=== PATIENT | male | born 1940 | race Caucasian/White ===

== ENCOUNTER 2022-05-15 07:43 | Outpatient (CLI) | payer MEDICARE, BC, SELFPAY ==
[2022-05-15 11:45] LABS: Albumin* 4.1 g/dL (3.3-5.0); Chloride* 106 mmol/L (96-114); Potassium* 4.5 mmol/L (3.6-5.1); Sodium* 140 mmol/L (135-149)
[2022-05-15 11:47] LABS: Bilirubin Total* 1.7 mg/dL (0.1-1.5); Carbon Dioxide* 28 mmol/L (20-32); Cholesterol* 161 mg/dL (90-199); Creatinine* 0.9 mg/dL (0.5-1.5); Estimated Glomerular Filt Rate 86 ml/min; Total Protein* 7.1 g/dL (6.0-8.3)
[2022-05-15 11:48] LABS: Alanine Aminotransferase* 35 U/L (4-50); Alkaline Phosphatase* 74 U/L (40-150); Aspartate Amino Transferase* 45 U/L (12-35); Blood Urea Nitrogen* 16 mg/dL (7-30); Calcium* 9.3 mg/dL (8.4-10.6); Glucose* 107 mg/dL (60-115); HDL Cholesterol* 60 mg/dL (>=40); LDL Cholesterol Calculated 70 mg/dL (<100); Triglycerides* 153 mg/dL (40-149)
[2022-05-17 20:00] LABS: PSA Screen* 2.21 ng/mL (0.10-4.00)
== END 2022-05-15 07:44 | disposition home or self-care (01) ==
PROVIDERS: PCP Family Medicine; Visit Provider Family Medicine
DX: Z00.00 Encounter for general adult medical examination without abnormal findings (principal); E78.5 Hyperlipidemia, unspecified; N42.9 Disorder of prostate, unspecified; Z12.5 Encounter for screening for malignant neoplasm of prostate
CPT/HCPCS: 80053; 80061; 84153

== ENCOUNTER 2022-07-06 17:49 | Emergency (ER) | payer MEDICARE, BC, SELFPAY ==
[2022-07-06 17:53] VITALS: BP 188/86; PULSE 68; RESP 16; TEMP 36.1; BMI 31.2
--- NOTE | 2022-07-06 18:24 | CRLHL7_ITS ---
For Patients: As a result of the Century Cures Act, medical imaging exams and procedure reports are released immediately into your electronic medical record. You may view this report before your referring provider. If you have questions, please contact your health care provider. INDICATION: Left lower quadrant abdominal pain. TECHNIQUE: CT abdomen and pelvis acquired with 112 cc Isovue 370 IV contrast. COMPARISON: None. FINDINGS: Lower chest: Minimal dependent atelectasis on the right. Coronary artery calcifications. Liver: Normal in size and attenuation. 1.8 cm hypodense lesion in the groove between the left hepatic and caudate lobes (series 2, image 19), nonspecific may represent a perihepatic cyst. Gallbladder and bile ducts: Unremarkable. No stones or inflammation. No biliary ductal dilatation. Spleen: Unremarkable. Normal in size. No masses. Adrenal glands: Unremarkable. No nodules. Pancreas: Unremarkable. No mass or inflammation. Kidneys: 8 mm calculus in the distal left ureter near the ureterovesical junction with moderate upstream hydroureteronephrosis. Delayed nephrogram on the left compared to the right. Asymmetric left perinephric stranding, likely due to increased hydrostatic pressures. Left renal upper pole cyst. Subcentimeter hypodense foci are too small to accurately characterize but statistically likely cysts. GI tract: Normal in caliber. Scattered colonic diverticula without evidence of diverticulitis. Normal appendix. Lymph nodes: No lymphadenopathy. Vasculature: Scattered atherosclerotic calcifications. Omentum/Peritoneum/Abdominal Wall: Unremarkable. No free air or significant free fluid. Pelvis: Prostatomegaly. Bones: Degenerative changes of the spine. IMPRESSION: 1. 8 mm obstructive distal left ureteral calculus with moderate upstream hydroureteronephrosis and delayed nephrogram. 2. Scattered colonic diverticula without evidence of diverticulitis. 3. Prostatomegaly. Please note that all CT scans at this facility use dose modulation, iterative reconstruction, and/or weight-based dosing when appropriate to reduce radiation dose to as low as reasonably achievable. Dictated by Evan Doll MD @ 07/06/2022 9:16:44 PM (Electronically Signed)
--- NOTE | 2022-07-06 18:25 | ED.GENADULT ---
HPI - General Adult General Chief complaint: Flank Pain Stated complaint: back & left side pain Time Seen by Provider: 07/06/22 17:50 History of Present Illness HPI narrative: This 81-year-old male comes in reporting pain in his left lower quadrant. He states that the pain began this morning and it seemed more localized in his left flank area. The pain is worsened throughout the day. He states that it is constant pain. He does not report any fever, dysuria, nausea, vomiting, or blood in the toilet. He did have some loose stool today. Prior to this he has been in good health. Related Data Home Medications Medication Instructions Recorded Confirmed aspirin 81 mg tablet,delayed mg PO QDAY 05/17/22 05/17/22 release amxhkatx-mwh-lbqwb acid 300 1 tab PO QDAY 05/17/22 05/17/22 mcg-lycopene 600 mcg-lutein 300 mcg tablet (Centrum Silver Men) omega-3 acid ethyl esters 1 gram 1 cap PO QDAY 05/17/22 05/17/22 capsule Previous Rx's Medication Instructions Recorded atorvastatin 80 mg tablet 80 mg PO .Bedtime #90 tabs 05/17/22 tamsulosin 0.4 mg capsule (Flomax) 0.4 mg PO DAILY #10 caps 07/06/22 Allergies Allergy/AdvReac Type Severity Reaction Status Date / Time No Known Allergies Allergy Unknown Unknown Verified 07/06/22 19:12 Review of Systems Status of ROS: Reports: 10 or more systems reviewed and unremarkable except as noted in History and below Narrative: Constitutional: No fevers, no weight gain or loss. Eyes: No discharge. No vision changes. HENT: No congestion, no sore throat, no ear pain. Cardiovascular: No chest pain, no palpitations. Respiratory: No shortness of breath, no wheezes, no cough. Gastrointestinal: No vomiting, no diarrhea. Left lower quadrant abdominal pain. Genitourinary: No dysuria, no hematuria. Musculoskeletal: Normal range of motion. Skin: No rashes, no pruritis. Neurological: No dizziness, weakness, sensory change, speech change. Endo/Heme/Allergies: No bruising or bleeding. No polydipsia. Pysch: no suicidality, no anxiety, no insomnia. All other systems reviewed and are negative. [facility] Medical History (Updated 07/06/22 @ 20:54 by Avel Malik MD) Dyslipidemia Encounter for counseling regarding advance directives (08/12/90) Gilbert's syndrome Seasonal allergies Surgical History (Updated 05/14/22 @ 11:54 by Christi Gregg ~ PSR) History of tonsillectomy (1950) Family History (Updated 05/17/22 @ 15:28 by Dian You MD) Sister Bladder cancer Diabetes Breast cancer Family/Other Breast cancer Family/Other Liver disease Mother Diabetes Father Myocardial infarction Brother Prostate cancer, Onset Age: 80 Bladder cancer, Onset Age: 75 Social History (Updated 05/14/22 @ 12:10 by Christi Gregg ~ PSR) Narrative: , 2 adult kids Retired from [employer] Non-smoker quit 1975, 10pack years Social drinker 1-2/ day Exercise involving walking 1-2 M 3-4 week Smoking Status: Former smoker How often do you have a drink containing alcohol: 4 or more times a week How many standard drinks containing alcohol do you have on a typical day: 1 or 2 AUDIT-C Alcohol total score: 4 Non-prescribed substance use: denies use Little interest or pleasure in doing things: not at all Feeling down, depressed, or hopeless: not at all Exam Narrative: Exam Narrative: Constitutional: Well-developed, well-nourished, no acute distress. HEENT: Normocephalic, atraumatic. Neck: Normal range of motion. Nontender. Supple. Heart: Regular. No murmurs. Normal rate. Intact distal pulses. Lungs: Clear to auscultation. No chest discomfort. No wheezes, rhonchi, or rales. Abdomen: Normal bowel sounds. Tenderness in the left lower quadrant. No rebound tenderness. Genitalia: Deferred. Back: No midline tenderness. Normal range of motion. Extremities: Normal range of motion. No injury. Skin: Intact. No rash. Warm. No erythema or pallor. Neurologic: No altered sensation. No weakness. Alert and oriented. Psychiatric: No suicidality. No anxiety or depression. No insomnia. Nursing notes and vitals signs are reviewed. Const: Vital Signs, click to edit/add: Vital Signs - 24 hr 07/06/22 17:53 07/06/22 18:56 Temperature 97.0 F L Pulse Rate [Right Pulse Oximeter] 68 77 Respiratory Rate 16 16 Blood Pressure [Le ft Upper Arm] 188/86 H 167/92 H Pulse Oximetry 93 Oxygen Delivery Me thod Room Air Course Vital Signs Vital signs: Initial Vital Signs Temperature 97.0 F L 07/06/22 17:53 Temperature Source Temporal Artery Scan 07/06/22 17:53 Pulse Rate 68 07/06/22 17:53 Pulse Rhythm 07/06/22 17:53 Respiratory Rate 16 07/06/22 17:53 Blood Pressure 188/86 H 07/06/22 17:53 Blood Pressure Mean 120 07/06/22 17:53 Vital Signs Temperature 97.0 F L 07/06/22 17:53 Pulse Rate 68 07/06/22 17:53 Respiratory Rate 16 07/06/22 17:53 Blood Pressure 188/86 H 07/06/22 17:53 Temperature 97.0 F L 07/06/22 17:53 Pulse Rate 77 07/06/22 18:56 Respiratory Rate 16 07/06/22 18:56 Blood Pressure 167/92 H 07/06/22 18:56 Pulse Oximetry 93 07/06/22 18:56 Oxygen Delivery Method 07/06/22 18:56 Medical Decision Making MDM Narrative Medical decision making narrative: This patient comes in with left flank pain that began this morning and now is located in the left lower abdomen. There is suspicion that this could be a kidney stone or diverticulitis. He does arrive with normal vital signs except for some increased blood pressure. An IV was established where he received Dilaudid 0.2 mg. Lab results returned with reassuring findings. CT imaging by my review shows evidence of a stone in the distal left ureter with some hydronephrosis and hydroureter upstream from the stone. This stone appears to be a bit larger than average. Report from the radiologist is delayed as the images were not sent initially. I explained to the patient that it can be worth a try to pass the stone without intervention from a urologist as it has progressed from the kidney to the entrance of the bladder. He understands that he can return or follow-up with a urologist if symptoms are persistent or worsening. He received prescriptions for [place], Toradol, Zofran, and Flomax. Lab Data Labs: Lab Results 07/06/22 07/06/22 Range/Units 18:35 18:35 WBC 11.48 H (4.50-11.00) K/uL RBC 5.19 (4.30-5.90) m/uL Hgb 16.8 (13.5-17.5) gm/dL Hct 48.9 (37.0-53.0) % MCV 94 (80-100) fL MCH 32 (26-34) pg MCHC 34 (32-36) gm/dL RDW Coeff of Linnette 12.5 (11.5-15.5) % Plt Count 190 (140-440) K/uL Neut % (Auto) 87.2 H (42.0-72.0) % Lymph % (Auto) 6.4 L (20-44) % Owsley % (Auto) 5.8 (0.0-11.0) % Eos % (Auto) 0.1 (0.0-7.0) % Baso % (Auto) 0.1 (0.0-3.0) % Neut # (Auto) 10.00 H (1.7-7.0) K/uL Lymph # (Auto) 0.70 L (0.90-2.90) K/uL Owsley # (Auto) 0.70 (0.00-0.90) K/UL Eos # (Auto) 0.00 (0.00-0.50) K/uL Baso # (Auto) 0.00 (0.00-0.30) K/uL Sodium 139 (135-149) mmol/L Potassium 4.4 (3.6-5.1) mmol/L Chloride 106 (96-114) mmol/L Carbon Dioxide 25 (20-32) mmol/L BUN 17 (7-30) mg/dL Creatinine 1.1 (0.5-1.5) mg/dL Estimated Creat Clear 58.79 Estimated GFR 68 ml/min Glucose 134 H (60-115) mg/dL Calcium 9.5 (8.4-10.6) mg/dL Discharge Plan Discharge Clinical Impression: Calculus, ureteral Patient Disposition: Home, Self-Care Condition: Unchanged Additional Instructions: Take medication as needed and indicated. Follow up with MD also as needed. If symptoms worsen or are not improving return or present to a facility with a urologist for further interventions as may be necessary. Prescriptions: New tamsulosin [Flomax] 0.4 mg capsule 0.4 mg PO DAILY Qty: 10 2RF No Action aspirin 81 mg tablet,delayed release (DR/EC) PO QDAY Centrum Silver Men 300-600-300 mcg tablet 1 tab PO QDAY omega-3 acid ethyl esters 1 gram capsule 1 cap PO QDAY atorvastatin 80 mg tablet 80 mg PO .Bedtime Qty: 90 4RF Follow Up/Referrals: Dian You MD [Primary Care Provider] - Stand Alone Forms: [employer] Apps Info Instructions
[2022-07-06 18:48] LABS: Basophils Percent Auto 0.1 % (0.0-3.0); Eosinophils Percent Auto 0.1 % (0.0-7.0); Hematocrit 48.9 % (37.0-53.0); Hemoglobin* 16.8 gm/dL (13.5-17.5); Immature Granulocytes Pct Auto 0.4 %; Lymphocytes Percent Auto 6.4 % (20-44); Mean Corpuscular HGB Conc 34 gm/dL (32-36); Mean Corpuscular Hemoglobin 32 pg (26-34); Mean Corpuscular Volume 94 fL (80-100); Monocytes Percent Auto 5.8 % (0.0-11.0); Neutrophils Percent Auto 87.2 % (42.0-72.0); Platelet Count* 190 K/uL (140-440); RDW Coefficient of Variation % 12.5 % (11.5-15.5); Red Blood Count 5.19 m/uL (4.30-5.90); White Blood Count* 11.48 K/uL (4.50-11.00)
[2022-07-06] MEDS: HYDROmorphone 0.5 mg/0.5 ml inj 0.2 MG IVP (18:51)
[2022-07-06 18:55] LABS: Slide Review Reflex No
[2022-07-06 18:56] VITALS: BP 167/92; PULSE 77; RESP 16; O2SAT 93
[2022-07-06 19:02] LABS: Chloride* 106 mmol/L (96-114); Potassium* 4.4 mmol/L (3.6-5.1); Sodium* 139 mmol/L (135-149)
[2022-07-06 19:04] LABS: Creatinine* 1.1 mg/dL (0.5-1.5); Est. Creatinine Clearance* 58.79; Estimated Glomerular Filt Rate 68 ml/min
[2022-07-06 19:05] LABS: Blood Urea Nitrogen* 17 mg/dL (7-30); Calcium* 9.5 mg/dL (8.4-10.6); Carbon Dioxide* 25 mmol/L (20-32); Glucose* 134 mg/dL (60-115)
[2022-07-06] MEDS: HYDROmorphone 0.5 mg/0.5 ml inj IVP (20:56)
[2022-07-06] MEDS: KETOROLAC 30 MG/ML inj IVP (20:56)
[2022-07-06 21:12] VITALS: RESP 14; O2SAT 92
--- NOTE | 2022-07-07 12:45 | ED.NURSE ---
Pt's called stating that flomax was not at [facility]. Was sent to mail order. Called into [facility]. Pharmacist will call and cancel mail order.
== END 2022-07-06 21:42 | disposition home or self-care (01) ==
PROVIDERS: Emergency Provider Emergency Medicine Emergency Medical Services; PCP Family Medicine
DX: N20.1 Calculus of ureter (principal)
CPT/HCPCS: 36415; 74177; 80048; 85025; 96374; 96375; 96376; 99284; J1170; J1885; Q9967

== ENCOUNTER 2023-05-09 07:50 | Outpatient (CLI) | payer MEDICARE, BC, SELFPAY | END 2023-05-09 07:51 | disposition home or self-care (01) | LOC: NFLDREF 05-15 15:40 | PROVIDERS: PCP Family Medicine; Referring Provider Family Medicine; Visit Provider Family Medicine | DX: E78.5 Hyperlipidemia, unspecified (principal); R73.01 Impaired fasting glucose; Z12.5 Encounter for screening for malignant neoplasm of prostate; Z13.9 Encounter for screening, unspecified | CPT/HCPCS: 80053; 80061; 82248; G0103 ==

== ENCOUNTER 2023-10-23 15:43 | Outpatient (CLI) | payer MEDICARE, BC, SELFPAY | END 2023-10-23 15:44 | disposition home or self-care (01) | PROVIDERS: PCP Family Medicine; Visit Provider Family Medicine | DX: N20.1 Calculus of ureter (principal); R39.15 Urgency of urination; N39.41 Urge incontinence; R73.03 Prediabetes; R53.83 Other fatigue | CPT/HCPCS: 80053; 87086 ==

== ENCOUNTER 2024-05-12 07:33 | Outpatient (CLI) | payer MEDICARE, BC, SELFPAY | END 2024-05-12 07:34 | disposition home or self-care (01) | LOC: NFLDREF 05-17 03:56 | PROVIDERS: PCP Family Medicine; Referring Provider Family Medicine; Visit Provider Family Medicine | DX: E78.5 Hyperlipidemia, unspecified (principal); R73.01 Impaired fasting glucose; Z12.5 Encounter for screening for malignant neoplasm of prostate | CPT/HCPCS: 80053; 80061; G0103 ==

== ENCOUNTER 2024-05-17 00:36 | Emergency (ER) | payer MEDICARE, BC, SELFPAY ==
[2024-05-17] VITALS (26 sets, daily range): BP systolic 114–166; BP diastolic 58–69; PULSE 50–67; RESP 16–18; TEMP 35.8–36.6; O2SAT 88–99; BMI 31.2
--- OUTSIDE RECORDS SUMMARY | 2024-05-17 00:39 | XMS_ITS | Data Portability ---
Author Organization [facility], [facility] Address [address] [place] [address] Care Team Providers Care Coat Ironer Hand Name Role Phone JOHN PATTERSON Referring Provider [phone] Assessment No assessment recorded. Plan of Treatment Reminders Order Date Submit Date Provider Last Modified By Organization Details Last Modified Time Details Appointments None recorded. Lab urinalysis , dipstick 2023 024 [facility], [address], [address], [place], [address], 15:34:12 Referral None recorded. Procedures None recorded. Surgeries None recorded. Imaging None recorded. Medication Orders None recorded. Patient TargetsNo targets recorded. Patient InstructionsNo instructions recorded. Reason for Referral None Reported. Results Created Date Observation Date Name Description Value Unit Range Abnormal Flag Note LastModifiedBy Organization Detail LastModifiedTime 11/26/19 24 11/26/2023 urina lysis , dipst ick Color-Status Yellow Not Available [place] [id number], [place], [address], 11/26/2023 14:52:43 11/26/19 24 11/26/2023 urina lysis , dipst ick Clarity-Stat us Slight ly Cloudy Not Available [facility] [address], [place], [address], 11/26/2023 14:52:43 11/26/19 24 11/26/2023 urina lysis , dipst ick Glucose-Stat us Negati ve Not Available [address], [place], [address], 11/26/2023 14:52:43 11/26/19 24 11/26/2023 urina lysis , dipst ick Bilirubin-St atus Negati ve Not Available [address], [place], [address], 11/26/2023 14:52:43 11/26/19 24 11/26/2023 urina lysis , dipst ick Ketones-Stat us Negati ve Not Available [address], [place], [address], 11/26/2023 14:52:43 11/26/19 24 11/26/2023 urina lysis , dipst ick Sp Gallion-Stat us 1.030 Not Available [address], [place], [address], 11/26/2023 14:52:43 11/26/19 24 11/26/2023 urina lysis , dipst ick pH-Status 7.0 Not Available [address], [place], [address], 11/26/2023 14:52:43 11/26/19 24 11/26/2023 urina lysis , dipst ick Urobilinogen -Status 0.2 Not Available [address], [place], [address], 11/26/2023 14:52:43 11/26/19 24 11/26/2023 urina lysis , dipst ick Nitrates-Sta tus negati ve Not Available [address], [place], [address], 11/26/2023 14:52:43 11/26/19 24 11/26/2023 urina lysis , dipst ick Blood-Status Negati ve Not Available [address], [place], [address], 11/26/2023 14:52:43 11/26/19 24 11/26/2023 urina lysis , dipst ick Leuko-Status Negati ve Not Available [address], [place], [address], 11/26/2023 14:52:43 11/26/19 24 11/26/2023 urina lysis , dipst ick Performed by hprim Not Available [address], [place], [address], 11/26/2023 14:52:43 Result Notes None recorded. Problems Name Problem SNOMED Code Status Onset Date Resolution Date Notes Provider Name and Address Organization Details Recorded Time Kidney stone 06259754 Active 024 Armand Delgado MD [address] [place] [address], [address] , [facility] 11/26/2023 15:32:39 Urgent desire to urinate 07281046 Active 024 Armand Delgado MD [address] [place] [address], [address] , [facility] 11/26/2023 15:33:00 Problem Notes None recorded. Procedures Surgical History Date Name Laterality Status Provider Name and Address Organization Details Recorded Time Bladder Scan completed Ellen Khan [facility] 11/26/2023 14:49:39 Imaging Results None recorded. Procedure Notes None recorded. Medical Equipment None Reported. Allergies No known drug allergies Medications Name Sig Start Date Stop Date Status Note LastModified by Organization Details LastModified Time atorvastatin 80 mg tablet active Not Available Not Available Not Available azithromycin 250 mg tablet 11/25 completed Not Available Not Available Not Available benzonatate 200 mg capsule TAKE 1 CAPSULE BY MOUTH 2 TO 3 TIMES PER DAY NEEDED FOR COUGH 11/25 completed Not Available Not Available Not Available amoxicillin 875 mg-potassium clavulanate 125 mg tablet TAKE 1 TABLET BY MOUTH TWICE DAILY FOR 7 DAYS 11/25 completed Not Available Not Available Not Available Vitals None Recorded Social History Question Answer Notes LastModified by Organizat ion Details LastModified Time Tobacco Smoking Status Former Smoker Ellen Khan [place], [place] - [facility] 11/26/2023 14:48:58 What Is Your Level Of Alcohol Consumption? Moderate Information not available 11/26/2023 What Is Your Level Of Caffeine Consumption? Moderate Information not available 11/26/2023 When Did You Quit Smoking? 16+yearssince lastcigarette Information not available 11/26/2023 What Was The Date Of Your Most Recent Tobacco Screening? 11/26/2023 Information not available 11/26/2023 Have You Ever Been Counseled For Unhealthy Alcohol Use? No Information not available 11/26/2023 How Much Tobacco Do You Smoke? No Information not available 11/26/2023 Do You Use Any Illicit Or Recreational Drugs? No Information not available 11/26/2023 Has Tobacco Cessation Counseling Been Provided? No Information not available 11/26/2023 Do You Or Have You Ever Used Any Other Forms Of Tobacco Or Nicotine? No Information not available 11/26/2023 How Many Days In The Past Year Have You Consumed 5 Or More Drinks? 0 Information no t available 11/26/2023 Sex: Unknown Functional Status None recorded. Mental Status None recorded. Family History Nothing Reported. Medical History Condition Response Diabetes N Sexually Transmitted Infection N Bleeding Disorder N Other N High Blood Pressure N Kidney Stones N Cancer N Lung Disease N Depression N High Cholesterol Y GERD/Acid Reflux N Heart Disease N Past Encounters Encounter ID Performer Location Encounter Start Date Encounter Closed Date Diagnosis/Indication Diagnosis SNOMED-CT Code Diagnosis ICD10 Code Diagnosis Note [id number] Armand Delgado MD [facility] [address] [place] [address] 11/26/2023 14:27:33 12/01/2023 11:54:32 Kidney stone 55172919 N20.0 - Stone has likely passed. No pain for the last 3 months and urinalysis is negative for blood. Recommende d to call if he develops recurrent pain and I would order another CT scan. Family his tory of malignant neoplasm of urinary bladder 731331675 Z80.52 - Bladder cancer is generally not a genetic disease. It is most often related to smoking. He has no history of gross hematuria nor any microscopi c blood in his urine. Cystoscopy is not indicated. I offered referral to a wooden boat builder if he was interested . Patient declined. Urgent hua beata to urinate 96031728 R39.15 - Mild, not bothersome , follow expectantl y. Return to clinic as needed. Health Concerns Section Related Observation LastModified by Organization Detai ls LastModified Time None Recorded Concern Status LastModified by Organization Details LastModified Time None Recorded Advance Directives Directive None Recorded Payers Encounter Date Sequence Insurance Name Policy Number Policy Barcenas Covered Member ID Barcenas Member ID Guarantor Name 11/26/2023 1 [place] [employer] Daniel Gonzales [id number] Daniel Gonzales 11/26/2023 2 [place] [id number] Daniel Gonzales [id number] Daniel Gonzales Notes Date Note Type Note Provider Name and Address Organization Details Recorded Time 11/26/2023 text/html New patient referred for bladder concerns and history of kidney stones. He reports left-sided flank pain that prompted a trip to the [place] emergency room in June 2023. He reportedly had a CT scan that diagnosed a distal ureteral stone. He had another flareup of pain a month later but none since. I do not have the CT report available. I reviewed his most recent primary care note from Dr. Patterson with [facility] dated 10/23/2023. Several of his family members, who are smokers have a bladder cancer. He has not had any blood in the urine. He wonders about his risk or whether he needs workup for bladder cancer. He has rare episodes of urgency incontinence but does not use pads. Urinalysis today is totally negative. Postvoid residual 87 mL. AUA symptom score 5, bother 0. Armand Delgado MD [address] [place] [address], [place], [address], [facility] 11/26/2023 15:34:47
--- OUTSIDE RECORDS SUMMARY | 2024-05-17 00:39 | XMS_ITS | Continuity of Care Document ---
Author Name NwHIN User [email or web address]-a llowed Address Unknown Organization Unknown Address Unknown Procedures FILTER APPLIED:Only known Procedures with Onset Date within the last 5 years Procedure Date Procedure Provider Additional Inform ation Status COMPREHEN METABOLIC PANEL (83172) Completed ASSAY OF PSA TOTAL (72492) Completed BILIRUBIN DIRECT (82512) Completed LIPID PANEL (29773) Comp leted Encounters FILTER APPLIED:Only known Encounters with Admission Date within the last 5 years Encounter Location Admission Discharge Billing Code Ergonomics Consultant D[facility]
--- NOTE | 2024-05-17 00:43 | CRLHL7_ITS ---
For Patients: As a result of the Century Cures Act, medical imaging exams and procedure reports are released immediately into your electronic medical record. You may view this report before your referring provider. If you have questions, please contact your health care provider. INDICATION: Chest pain. TECHNIQUE: Chest 2 view. COMPARISON: Chest radiograph 04/16/2023. FINDINGS: Cardiovascular: Heart size and vasculature are normal in caliber and appearance. Lungs and pleural spaces: There is a subtle airspace opacity in the left lung base. No sign of pleural effusion. No pneumothorax identified. Bones and soft tissues: Degenerative changes of the spine. IMPRESSION: Subtle airspace opacity in the left lung base may represent atelectasis or developing infiltrate. Dictated by Ernestina Sanchez MD @ 05/17/2024 1:09:35 AM (Electronically Signed)
[2024-05-17] MEDS: ASPIRIN 81 MG TAB.CHEW 324 MG PO (00:47)
[2024-05-17] MEDS: NITROGLYCERIN 0.4 MG TAB.SUBL SUBLINGUAL (00:47)
[2024-05-17] MEDS: 0.9 % SODIUM CHLORIDE 1000 ml 1,000 ML IV (00:53)
[2024-05-17] MEDS: MORPHINE 2 MG/ML inj IVP (00:53)
[2024-05-17 00:55] LABS: Basophils Absolute Auto 0.01 K/uL (0.00-0.30); Basophils Percent Auto 0.1 % (0.0-3.0); Eosinophils Absolute Auto 0.07 K/uL (0.00-0.50); Eosinophils Percent Auto 0.7 % (0.0-7.0); Hematocrit 43.1 % (37.0-53.0); Hemoglobin* 14.7 gm/dL (13.5-17.5); Immature Granulocytes Abs Auto 0.04 K/uL (0.00-0.30); Immature Granulocytes Pct Auto 0.4 %; Lymphocytes Percent Auto 14.2 % (20-44); Mean Corpuscular HGB Conc 34 gm/dL (32-36); Mean Corpuscular Hemoglobin 32 pg (26-34); Mean Corpuscular Volume 94 fL (80-100); Monocytes Percent Auto 9.1 % (0.0-11.0); Neutrophils Percent Auto 75.5 % (42.0-72.0); Platelet Count* 210 K/uL (140-440); RDW Coefficient of Variation % 12.4 % (11.5-15.5); Red Blood Count 4.59 m/uL (4.30-5.90); White Blood Count* 9.97 K/uL (4.50-11.00)
[2024-05-17 00:58] LABS: Troponin, Point-of-Care* 0.01 ng/ml (0.01-0.04)
[2024-05-17 00:58] LABS: Slide Review Reflex No
[2024-05-17 01:08] LABS: Albumin* 4.4 g/dL (3.3-5.0)
[2024-05-17 01:09] LABS: Chloride* 106 mmol/L (96-114); Potassium* 3.7 mmol/L (3.6-5.1); Sodium* 139 mmol/L (135-149)
[2024-05-17 01:11] LABS: Anion Gap 10 mEq/L (7-15); Bilirubin Direct* 0.3 mg/dL (0.0-0.5); Carbon Dioxide* 23 mmol/L (20-32); Creatinine* 1.1 mg/dL (0.5-1.5); Est. Creatinine Clearance* 56.83; Estimated Glomerular Filt Rate 67 ml/min; INR 0.95 (0.91-1.10); Prothrombin Time 13.3 Seconds; Total Protein* 7.6 g/dL (6.0-8.3)
[2024-05-17 01:12] LABS: Alanine Aminotransferase* 22 U/L (4-50); Alkaline Phosphatase* 86 U/L (40-150); Aspartate Amino Transferase* 35 U/L (12-35); Blood Urea Nitrogen* 25 mg/dL (7-30); Calcium* 9.4 mg/dL (8.4-10.6); Glucose* 130 mg/dL (60-115); Lipase* 1058 U/L (23-300); Partial Thromboplastin Time* 24 Seconds (23-33)
[2024-05-17 01:14] LABS: D Dimer Quantitative* 0.58 ug/ml (0.00-0.50)
--- OUTSIDE RECORDS SUMMARY | 2024-05-17 01:18 | XMS_ITS | Continuity of Care Document ---
Author Name NwHIN User [email or web address]-a llowed Address Unknown Organization Unknown Address Unknown Procedures FILTER APPLIED:Only known Procedures with Onset Date within the last 5 years Procedure Date Procedure Provider Additional Inform ation Status COMPREHEN METABOLIC PANEL (32929) Completed ASSAY OF PSA TOTAL (68933) Completed BILIRUBIN DIRECT (72315) Completed LIPID PANEL (33160) Comp leted Encounters FILTER APPLIED:Only known Encounters with Admission Date within the last 5 years Encounter Location Admission Discharge Billing Code Boiler Attendant [facility]
[2024-05-17 01:21] LABS: NT Pro B Type NatriureticPept* 115 pg/mL
--- NOTE | 2024-05-17 01:25 | CRLHL7_ITS ---
For Patients: As a result of the Century Cures Act, medical imaging exams and procedure reports are released immediately into your electronic medical record. You may view this report before your referring provider. If you have questions, please contact your health care provider. INDICATION: Epigastric pain, elevated lipase. TECHNIQUE: CT abdomen and pelvis acquired with 95 cc Isovue 370 IV contrast. COMPARISON: CT abdomen and pelvis 07/06/2022. FINDINGS: Lower chest: Please refer to separate concurrent CTA chest PE. Liver: Unremarkable. Normal in size and attenuation. No suspicious masses. Gallbladder and bile ducts: Unremarkable. No stones or inflammation. No biliary ductal dilatation. Spleen: Unremarkable. Normal in size. No masses. Adrenal glands: Unremarkable. No nodules. Pancreas: Unremarkable. No mass or inflammation. Kidneys: 11 x 7 mm calculus at the left ureterovesical junction. Moderate left hydroureteronephrosis. Delayed left nephrogram. Left upper pole cyst. Subcentimeter hypodense foci are too small to accurately characterize. GI tract: Colonic diverticulosis without evidence of diverticulitis. No evidence of obstruction. Normal appendix. Lymph nodes: No lymphadenopathy. Vasculature: Unremarkable. Omentum/Peritoneum/Abdominal Wall: Unremarkable. No free air or significant free fluid. Pelvis: Prostatomegaly. Bones: Degenerative changes. IMPRESSION: 11 x 7 mm obstructive left ureterovesical junction calculus with moderate left hydroureteronephrosis. Please note that all CT scans at this facility use dose modulation, iterative reconstruction, and/or weight-based dosing when appropriate to reduce radiation dose to as low as reasonably achievable. Dictated by Evan Doll MD @ 05/17/2024 2:22:18 AM (Electronically Signed)
--- NOTE | 2024-05-17 01:25 | CRLHL7_ITS ---
For Patients: As a result of the Century Cures Act, medical imaging exams and procedure reports are released immediately into your electronic medical record. You may view this report before your referring provider. If you have questions, please contact your health care provider. INDICATION: Chest pain. TECHNIQUE: CTA chest PE was acquired with 95 cc Isovue 370 IV contrast. Coronal and sagittal MIP reconstructions were performed. COMPARISON: Chest radiographs 05/17/2024. FINDINGS: Heart and vasculature: Contrast opacification of the pulmonary arterial tree is adequate. No sign of pulmonary embolism. Heart size is normal. Thoracic aorta and pulmonary artery are normal in caliber. Coronary artery calcifications. Lungs and pleura: Dependent and bibasilar atelectasis. Otherwise no acute infiltrates. Scattered calcified granulomas. No suspicious pulmonary nodules. No pleural effusions, pleural thickening, or pneumothorax. Lymph nodes/mediastinum: No mediastinal, hilar, or axillary adenopathy. Calcified mediastinal and hilar lymph nodes, likely sequela of healed granulomatous disease. Thyroid gland is unremarkable. Chest wall: No masses. Upper abdomen: Please refer to separate concurrent CT abdomen and pelvis. Bones: Unremarkable for age. IMPRESSION: No evidence of pulmonary embolism or acute pulmonary infiltrates. Please note that all CT scans at this facility use dose modulation, iterative reconstruction, and/or weight-based dosing when appropriate to reduce radiation dose to as low as reasonably achievable. Dictated by Evan Doll MD @ 05/17/2024 2:18:10 AM (Electronically Signed)
[2024-05-17] MEDS: MORPHINE 4 MG/ML INJ IVP (01:33)
[2024-05-17 01:42] LABS: Ethanol* < 0.01 % (0.01-0.03)
--- NOTE | 2024-05-17 01:45 | ED.CHESTPAIN ---
HPI - Chest Pain General Date Seen: 05/17/24 Chief Complaint: Chest Pain Stated Complaint: Heart attack per , vomiting also Time Seen by Provider: 05/17/24 00:41 Source: patient and family Mode of arrival: ambulatory Limitations: no limitations History of Present Illness HPI narrative: Patient is a 3-year-old gentleman who presents here with 2 hours of percussed only worse epigastric pain with radiation to his chest. Associated with 2 episodes of vomiting in the vehicle coming over here, some sweating also. Initially telling me he is having a heart attack. Brought over by his . He noted some pain that came on after he ate tonight, and then tried to go to sleep the pain got worse and will come up. Does not describe any radiation up into his neck or his arm, or into his back. No previous history of heart attacks, does have a history of extra beats in his heart, which she followed up with Cardiology in [facility], also had stress test there, but this was greater than 8 years ago. Has a history of dyslipidemia Denies any progressive shortness of breath, fevers chills, coughing, or other symptoms felt fine otherwise. Does have a family history of premature coronary disease with his father dying at age 61 Risk Factors Coronary artery disease risk factors: smoking history and hyperlipidemia Thoracic aortic dissection risk factors: none Related Data Home Medications ?Medication ?Instructions ?Recorded ?Confirmed aspirin 81 mg tablet,delayed 81 mg PO QDAY 05/17/22 05/17/24 release [id number] 300 mcg-K 60 1 tab PO QDAY 05/17/22 05/17/24 mcg-lycop 600 mcg-lutein 300 mcg tablet (Centrum Silver Men) omega-3 acid ethyl esters 1 gram 1 cap PO QDAY 05/17/22 05/17/24 capsule Previous Rx's ?Medication ?Instructions ?Recorded atorvastatin 80 mg tablet 80 mg PO .Bedtime #90 tabs 05/13/23 hydrocodone 5 mg-acetaminophen 300 1 tab PO Q6H #14 tabs 05/17/24 mg tablet Allergies Allergy/AdvReac Type Severity Reaction Status Date / Time No Known Allergies Allergy Unknown Unknown Verified 10/23/23 14:58 Review of Systems Status of ROS Reports: 10 or more systems reviewed and unremarkable except as noted in History and below [facility] Medical History Screening for AAA (abdominal aortic aneurysm) (04/2020) ?Z13.6 - Encounter for screening for cardiovascular disorders (ICD-10) Calculus, ureteral (07/06/22) ?N20.1 - Calculus of ureter (ICD-10) Seasonal allergies ?J30.2 - Other seasonal allergic rhinitis (ICD-10) Gilbert's syndrome (~2018) ?E80.4 - Gilbert syndrome (ICD-10) Encounter for counseling regarding advance directives (08/12/90) ?Z71.89 - Other specified counseling (ICD-10) Dyslipidemia ?E78.5 - Hyperlipidemia, unspecified (ICD-10) Surgical History History of tonsillectomy (1951) ?Z90.89 - Acquired absence of other organs (ICD-10) Family History Sister Bladder cancer Diabetes Breast cancer Family/Other Breast cancer Alcoholic cirrhosis of liver Bladder cancer Mother Diabetes Father Myocardial infarction, Onset Age: 61 Brother Prostate cancer, Onset Age: 80 Bladder cancer, Onset Age: 75 Social History Narrative: , 2 adult kids Retired from [employer] Non-smoker quit 1975, 10pack years Social drinker 1-2/ day Exercise involving walking 1-2 M 3-4 week What is your current living situation?: I presently have a place to live Problems where you live: no known problems In the past 12 months, utilities in danger of being shut off: no In past 12 months, lack of transportation kept you from medical appts, meetings, work, or getting things needed for daily living: no In the past 12 mos, have been you worried that your food would run out before you had money to buy more?: never true In the past 12 mos, the food you bought just didn't last and you didn't have money to buy more?: never true Smoking Status: Former smoker How often do you have a drink containing alcohol: 4 or more times a week How many standard drinks containing alcohol do you have on a typical day: 1 or 2 How often do you have six or more drinks on one occasion: Never AUDIT-C Alcohol total score: 4 Non-prescribed substance use: denies use How often does anyone, including family, friends and others, physically hurt you: never How often does anyone, including family, friends and others, insult or talk down to you: never How often does anyone, including family, friends and others, threaten you with harm: never How often does anyone, including family, friends and others, scream or curse at you: never Exam Narrative Exam Narrative: On examination is stabilization room 1, he is complaining of the chest discomfort epigastric pain, appears to be in sinus rhythm on the monitor. The slight elevation of his blood pressure. Pupils equal round reactive to light there is no scleral icterus redness is TMs are normal his oropharynx is normal, carotid upstrokes are normal JVP is flat no meningismus his neck is supple. Cranial nerves 3-12 are normal. Chest is good air entry bilaterally with no wheezing crackles noted no splinting noted. Heart sounds no clicks murmurs or gallops abdomen is soft there is no guarding no organomegaly bowel sounds are normal. Negative Pratt sign, moves all extremities independently well absence of edema, normal peripheral pulses skin reveals no petechiae rashes, and neurologically intact in his upper lower extremities. Const Vital Signs, click to edit/add: Vital Signs - 24 hr 05/17/24 00:43 05/17/24 00:43 05/17/24 00:43 Temperature 96.5 F L Pulse Rate Pulse Rate [Pulse Oximeter] 64 Respiratory Rate 16 Blood Pressure Blood Pressure [Right Upper Arm] 166/68 H Pulse Oximetry 98 97 Oxygen Delivery Method Room Air Room Air Oxygen Flow Rate 05/17/24 00:46 05/17/24 00:47 05/17/24 01:02 Temperature Pulse Rate 63 67 55 L Pulse Rate [Pulse Oximeter] Respiratory Rate Blood Pressure 166/68 H 131/69 Blood Pressure [Right Upper Arm] Pulse Oximetry 99 97 97 Oxygen Delivery Method Oxygen Flow Rate 05/17/24 01:03 05/17/24 01:12 05/17/24 01:15 Temperature Pulse Rate 55 L 53 L 53 L Pulse Rate [Pulse Oximeter] Respiratory Rate Blood Pressure 133/66 Blood Pressure [Right Upper Arm] Pulse Oximetry 96 95 94 Oxygen Delivery Method Oxygen Flow Rate 05/17/24 01:22 05/17/24 01:23 05/17/24 01:30 Temperature 97.9 F Pulse Rate 53 L 54 L 61 Pulse Rate [Pulse Oximeter] Respiratory Rate 18 Blood Pressure 131/63 Blood Pressure [Right Upper Arm] Pulse Oximetry 97 97 94 Oxygen Delivery Method Oxygen Flow Rate 05/17/24 01:32 05/17/24 01:33 05/17/24 01:42 Temperature Pulse Rate 55 L 57 L 53 L Pulse Rate [Pulse Oximeter] Respiratory Rate 16 16 Blood Pressure 114/58 L 115/58 L Blood Pressure [Right Upper Arm] Pulse Oximetry 92 93 88 Oxygen Delivery Method Oxygen Flow Rate 05/17/24 01:45 05/17/24 02:03 05/17/24 02:06 Temperature Pulse Rate 58 L 54 L 53 L Pulse Rate [Pulse Oximeter] Respiratory Rate Blood Pressure Blood Pressure [Right Upper Arm] Pulse Oximetry 88 97 98 Oxygen Delivery Method Oxygen Flow Rate 05/17/24 02:15 05/17/24 02:16 05/17/24 02:25 Temperature Pulse Rate 52 L 55 L 55 L Pulse Rate [Pulse Oximeter] Respiratory Rate Blood Pressure Blood Pressure [Right Upper Arm] Pulse Oximetry 96 95 95 Oxygen Delivery Method Oxygen Flow Rate 05/17/24 02:30 05/17/24 02:45 05/17/24 02:52 Temperature Pulse Rate 53 L 50 L 52 L Pulse Rate [Pulse Oximeter] Respiratory Rate 16 Blood Pressure 128/63 Blood Pressure [Right Upper Arm] Pulse Oximetry 94 96 96 Oxygen Delivery Method Oxygen Flow Rate 05/17/24 03:00 05/17/24 03:34 05/17/24 05:03 Temperature Pulse Rate 57 L 56 L Pulse Rate [Pulse Oximeter] 58 L Respiratory Rate 16 Blood Pressure Blood Pressure [Right Upper Arm] 135/66 Pulse Oximetry 95 94 94 Oxygen Delivery Method Nasal Cannula Nasal Cannula Oxygen Flow Rate 1 1 05/17/24 06:13 Temperature Pulse Rate Pulse Rate [Pulse Oximeter] 54 L Respiratory Rate 18 Blood Pressure Blood Pressure [Right Upper Arm] 122/61 Pulse Oximetry 96 Oxygen Delivery Method Room Air Oxygen Flow Rate Documenting provider has reviewed patient's vital signs: yes Course Course ED Course: Patient's initial troponin is 0 his EKG shows right bundle-branch block, flipped T-waves which may be pathologic but also may be normal to his right bundle melanie block, he is in sinus rhythm with the ventricular rate of 53. He received aspirin, morphine, nitroglycerin with some improvement of his discomfort. Laboratory work returned showing that lipase is very elevated at 1000. Initial troponin less than 0.01 He was improving, so we will order a chest CT and also an abdomen and pelvis. I will repeat his troponin EKG. But he appears to be more of a GI/pancreatic type issue. Reevaluation(s) Time of Reevaluation #1: 02:39 Reevaluation #1: Pain is markedly improved, chest CT shows that he has a left-sided ureterovesical stone, bit of weird presentation with his pain along with the lipase being elevated, lipase can be nonspecific but it is usually not this nonspecific. We will get a UA also, his pain is markedly improved, if this 2nd troponin is negative along with his negative EKGs, and the findings on his abdominal CT, I think this is the likely culprit. I think coronary artery disease it least an obstructive component is lower. Time of Reevaluation #2: 03:03 Reevaluation #2: Pain is improved, troponin 2nd 1 is 0.02 which gives us a delta of 0.01. No acute changes on his EKG. Does have the left-sided ureterovesical stone, and elevated lipase. I think it would be reasonable to keep him here overnight, do a stent other troponin at approximately 3+ hours. Keep him on a manager monitoring, I will also order an ultrasound at 6:30 a.m., of his left upper quadrant, this is to assess the possibility of cholelithiasis causing his elevated lipase. I spoke to the patient and his and they are in agreement I will send the home for now. Time of Reevaluation #3: 06:29 Reevaluation #3: Patient has done well overnight he is currently pain-free, EKG shows right bundle melanie block, flattening of his T-waves is noted laterally with inversion precordial leads V1 to V3 which is unchanged from previous EKGs. Troponin 0.01, which is unchanged. We will go ahead and get the right upper quadrant ultrasound. To rule out cholelithiasis as a possible cause for his elevated lipase. Additional Reevaluation(s): [address] [address] Diagnostic Imaging Report Patient: Daniel Gonzales MR#: [id number] : 1940 Acct:[id number] Loc: ED Service Date: 05/17/[address]: Ordering Physician: Jitendra Jones M.D. Date of Service: 05/17/24 Procedure(s): US abdomen limited Accession Number(s): [id number] cc: Dian You M.D.; Jitendra Jones M.D.~ For Patients: As a result of the Cures Act, medical imaging exams and procedure reports are released immediately into your electronic medical record. You may view this report before your referring provider. If you have questions, please contact your health care provider. INDICATION: Epigastric abdominal pain with elevated lipase. TECHNIQUE: Ultrasound abdomen limited. Sonographic images of the right upper quadrant were obtained using oshea-scale and color Doppler images. COMPARISON: None FINDINGS: Liver: Minimally inhomogeneous echotexture without focal lesion. Gallbladder: Faint sludge, no cholelithiasis. Normal wall thickness. No pericholecystic fluid. Common bile duct: 5 mm. Pancreas: Mostly obscured by bowel gas without gross abnormality. Right kidney: Normal in size. Normal echotexture and cortex. No masses, stones, or hydronephrosis. Vasculature: Inferior vena cava is poorly seen. Proximal aorta obscured by bowel gas. Mid to distal aorta is normal in caliber. IMPRESSION: 1. Somewhat limited examination with midline structures obscured by bowel gas. Specifically, the pancreas is not well seen although no gross abnormalities are identified. 2. Minimal gallbladder sludge, otherwise unremarkable sonographic appearance of the gallbladder and biliary tree. Dictated by Jorden Price MD @ 05/17/2024 7:32:16 AM (Electronically Signed) Vital Signs Vital signs: Initial Vital Signs Temperature 96.5 F L 05/17/24 00:43 Temperature Source Temporal Artery Scan 05/17/24 00:43 Pulse Rate 64 05/17/24 00:43 Respiratory Rate 16 05/17/24 00:43 Blood Pressure 166/68 H 05/17/24 00:43 Blood Pressure Mean 100 05/17/24 00:43 Blood Pressure Position Supine 05/17/24 00:43 Pulse Oximetry 98 05/17/24 00:43 Oxygen Delivery Method Room Air 05/17/24 00:43 Vital Signs Temperature 96.5 F L 05/17/24 00:43 Pulse Rate 64 05/17/24 00:43 Respiratory Rate 16 05/17/24 00:43 Blood Pressure 166/68 H 05/17/24 00:43 Pulse Oximetry 98 05/17/24 00:43 Oxygen Delivery Method Room Air 05/17/24 00:43 Temperature 97.9 F 05/17/24 01:22 Pulse Rate 54 L 05/17/24 06:13 Respiratory Rate 18 05/17/24 06:13 Blood Pressure 122/61 05/17/24 06:13 Pulse Oximetry 96 05/17/24 06:13 Oxygen Delivery Method Room Air 05/17/24 06:13 Oxygen Flow Rate 1 05/17/24 05:03 Medications Administered Medications: Discontinued Medications Generic Name Dose Route Start Last Admin Trade Name Freq PRN Reason Stop Dose Admin Acetaminophen 1,000 mg 05/17/24 03:01 05/17/24 03:06 Acetaminophen 500 Mg Tablet PO 05/17/24 03:02 1,000 mg ONCE ONE Administration Aspirin 324 mg 05/17/24 00:43 05/17/24 00:47 Aspirin 81 Mg Tab.Chew PO 05/17/24 00:44 324 mg ONCE ONE Administration Sodium Chloride 1,000 mls @ 1,000 mls/hr 05/17/24 00:45 05/17/24 01:54 0.9 % Sodium Chloride 1000 Ml IV 05/17/24 01:44 Infused .Q1H FITO Infusion Ketorolac Tromethamine 15 mg 05/17/24 03:01 05/17/24 03:06 Ketorolac 15 Mg/Ml Inj IVP 15 mg ONCE PRN Administration Moderate Pain Morphine Sulfate 2 mg 05/17/24 00:43 05/17/24 00:53 Morphine 2 Mg/Ml Inj IVP 05/17/24 00:44 2 mg ONCE ONE Administration Morphine Sulfate 4 mg 05/17/24 01:25 05/17/24 01:33 Morphine 4 Mg/Ml Inj IVP 05/17/24 01:26 4 mg ONCE ONE Administration Nitroglycerin 0.4 mg 05/17/24 00:43 05/17/24 00:47 Nitroglycerin 0.4 Mg Tab.Subl SUBLINGUAL 05/17/24 00:44 0.4 mg ONCE ONE Administration MDM - Chest Pain MDM Narrative Medical decision making narrative: During the evaluation of this patient I considered multiple differential diagnosis is. The life-threatening differential diagnosis include coronary disease/RI, pulmonary embolism, pneumothorax, pneumonia, and aortic dissection. Other differential diagnosis included but were not limited to pericarditis, myocarditis, chest wall pain, GERD, esophageal rupture, rib fracture contusion, pleurisy, as well as other etiologies. Differential Diagnosis Differential diagnosis: Likely fracture of rib, pneumothorax, stable angina, unstable angina pectoris, atypical chest pain, st elevation myocardial infarction, costochondritis, chest pain and biliary colic Medical Records Data Attestation: I reviewed the patient's medical records. Medical records narrative: Is no old EKG Lab Data Attestation: I reviewed the patient's lab results. Lab results narrative: D-dimer slightly elevated, given his history of epigastric pain, we will do a chest CT along with an abdominal CT S is lipase is elevated also. Does have a history of previous renal colic. Labs: Lab Results 05/17/24 05/17/24 05/17/24 Range/Units 00:43 00:46 02:35 WBC 9.97 (4.50-11.00) K/uL RBC 4.59 (4.30-5.90) m/uL Hgb 14.7 (13.5-17.5) gm/dL Hct 43.1 (37.0-53.0) % MCV 94 (80-100) fL MCH 32 (26-34) pg MCHC 34 (32-36) gm/dL RDW Coeff of [place] 12.4 (11.5-15.5) % Plt Count 210 (140-440) K/uL Neut % (Auto) 75.5 H (42.0-72.0) % Lymph % (Auto) 14.2 L (20-44) % [place] % (Auto) 9.1 (0.0-11.0) % Eos % (Auto) 0.7 (0.0-7.0) % Baso % (Auto) 0.1 (0.0-3.0) % Neut # (Auto) 7.50 H (1.7-7.0) K/uL Lymph # (Auto) 1.40 (0.90-2.90) K/uL [place] # (Auto) 0.90 (0.00-0.90) K/UL Eos # (Auto) 0.07 (0.00-0.50) K/uL Baso # (Auto) 0.01 (0.00-0.30) K/uL Abs Immat Gran (auto) 0.04 (0.00-0.30) K/uL Imm/Tot Granulo (auto) 0.4 % INR 0.95 (0.91-1.10) APTT 24 (23-33) Seconds D-Dimer Quant (PE/DVT) 0.58 H (0.00-0.50) ug/ml Sodium 139 (135-149) mmol/L Potassium 3.7 (3.6-5.1) mmol/L Chloride 106 (96-114) mmol/L Carbon Dioxide 23 (20-32) mmol/L Anion Gap 10 (7-15) mEq/L BUN 25 (7-30) mg/dL Creatinine 1.1 (0.5-1.5) mg/dL Estimated Creat Clear 56.83 Estimated GFR 67 ml/min Glucose 130 H (60-115) mg/dL Calcium 9.4 (8.4-10.6) mg/dL Total Bilirubin 1.0 (0.1-1.5) mg/dL Direct Bilirubin 0.3 (0.0-0.5) mg/dL AST 35 (12-35) U/L ALT 22 (4-50) U/L Alkaline Phosphatase 86 (40-150) U/L NT-Pro-B Natriuret Pep 115 pg/mL Total Protein 7.6 (6.0-8.3) g/dL Albumin 4.4 (3.3-5.0) g/dL Lipase 1058 H (23-300) U/L Urine Color Yellow (Yellow) Urine Appearance Clear (Clear) Urine pH 8.5 (5.0-8.5) Ur Specific [place] 1.015 (1.000-1.030) Urine Protein Negative (Negative) Urine Glucose (UA) Negative (Negative) Urine Ketones 1+ A (Negative) Urine Blood Negative (Negative) Urine Nitrite Negative (Negative) Urine Bilirubin Negative (Negative) Urine Urobilinogen 4.0 A (0.2-1.0) Ur Leukocyte Esterase Negative (Negative) Urine RBC 0-2 (0-2) Urine WBC 2-5 (0-5) Ur Squamous Epith Cells Few (None-Few) Urine Bacteria Few A (None) Ethyl Alcohol < 0.01 L (0.01-0.03) % POC Troponin I 0.01 (0.01-0.04) ng/ml 05/17/24 05/17/24 Range/Units 02:45 06:30 WBC (4.50-11.00) K/uL RBC (4.30-5.90) m/uL Hgb (13.5-17.5) gm/dL Hct (37.0-53.0) % MCV (80-100) fL MCH (26-34) pg MCHC (32-36) gm/dL RDW Coeff of [place] (11.5-15.5) % Plt Count (140-440) K/uL Neut % (Auto) (42.0-72.0) % Lymph % (Auto) (20-44) % [place] % (Auto) (0.0-11.0) % Eos % (Auto) (0.0-7.0) % Baso % (Auto) (0.0-3.0) % Neut # (Auto) (1.7-7.0) K/uL Lymph # (Auto) (0.90-2.90) K/uL [place] # (Auto) (0.00-0.90) K/UL Eos # (Auto) (0.00-0.50) K/uL Baso # (Auto) (0.00-0.30) K/uL Abs Immat Gran (auto) (0.00-0.30) K/uL Imm/Tot Granulo (auto) % INR (0.91-1.10) APTT (23-33) Seconds D-Dimer Quant (PE/DVT) (0.00-0.50) ug/ml Sodium (135-149) mmol/L Potassium (3.6-5.1) mmol/L Chloride (96-114) mmol/L Carbon Dioxide (20-32) mmol/L Anion Gap (7-15) mEq/L BUN (7-30) mg/dL Creatinine (0.5-1.5) mg/dL Estimated Creat Clear Estimated GFR ml/min Glucose (60-115) mg/dL Calcium (8.4-10.6) mg/dL Total Bilirubin (0.1-1.5) mg/dL Direct Bilirubin (0.0-0.5) mg/dL AST (12-35) U/L ALT (4-50) U/L Alkaline Phosphatase (40-150) U/L NT-Pro-B Natriuret Pep pg/mL Total Protein (6.0-8.3) g/dL Albumin (3.3-5.0) g/dL Lipase (23-300) U/L Urine Color (Yellow) Urine Appearance (Clear) Urine pH (5.0-8.5) Ur Specific [place] (1.000-1.030) Urine Protein (Negative) Urine Glucose (UA) (Negative) Urine Ketones (Negative) Urine Blood (Negative) Urine Nitrite (Negative) Urine Bilirubin (Negative) Urine Urobilinogen (0.2-1.0) Ur Leukocyte Esterase (Negative) Urine RBC (0-2) Urine WBC (0-5) Ur Squamous Epith Cells (None-Few) Urine Bacteria (None) Ethyl Alcohol (0.01-0.03) % POC Troponin I 0.02 0.01 (0.01-0.04) ng/ml Imaging Data CT Chest/Ab/Pelvis: Attestation: I have reviewed the pertinent imaging results. My impression: Chest CT negative, no acute findings, abdominal CT, left-sided hydronephrosis, with intravesical stone noted. Radiologist's impression: [place] [address] Diagnostic Imaging Report Patient: Daniel Gonzales MR#: [id number] : 1940 Acct:[id number] Loc: ED Service Date: 05/17/[address]: Ordering Physician: Jitendra Jones M.D. Date of Service: 05/17/24 Procedure(s): CT angio chest PE protocol Accession Number(s): [id number] cc: Dian You M.D.; Jitendra Jones M.D.~ For Patients: As a result of the Century Cures Act, medical imaging exams and procedure reports are released immediately into your electronic medical record. You may view this report before your referring provider. If you have questions, please contact your health care provider. INDICATION: Chest pain. TECHNIQUE: CTA chest PE was acquired with 95 cc Isovue 370 IV contrast. Coronal and sagittal MIP reconstructions were performed. COMPARISON: Chest radiographs 05/17/2024. FINDINGS: Heart and vasculature: Contrast opacification of the pulmonary arterial tree is adequate. No sign of pulmonary embolism. Heart size is normal. Thoracic aorta and pulmonary artery are normal in caliber. Coronary artery calcifications. Lungs and pleura: Dependent and bibasilar atelectasis. Otherwise no acute infiltrates. Scattered calcified granulomas. No suspicious pulmonary nodules. No pleural effusions, pleural thickening, or pneumothorax. Lymph nodes/mediastinum: No mediastinal, hilar, or axillary adenopathy. Calcified mediastinal and hilar lymph nodes, likely sequela of healed granulomatous disease. Thyroid gland is unremarkable. Chest wall: No masses. Upper abdomen: Please refer to separate concurrent CT abdomen and pelvis. Bones: Unremarkable for age. IMPRESSION: No evidence of pulmonary embolism or acute pulmonary infiltrates. Please note that all CT scans at this facility use dose modulation, iterative reconstruction, and/or weight-based dosing when appropriate to reduce radiation dose to as low as reasonably achievable. Dictated by Evan Doll MD @ 05/17/2024 2:18:10 [place] [address] Diagnostic Imaging Report Patient: Daniel Gonzales MR#: [id number] : 1940 Acct:[id number] Loc: ED Service Date: 05/17/[address]: Ordering Physician: Jitendra Jones M.D. Date of Service: 05/17/24 Procedure(s): CT abdomen pelvis w con Accession Number(s): [id number] cc: Dian You M.D.; Jitendra Jones M.D.~ For Patients: As a result of the Century Cures Act, medical imaging exams and procedure reports are released immediately into your electronic medical record. You may view this report before your referring provider. If you have questions, please contact your health care provider. INDICATION: Epigastric pain, elevated lipase. TECHNIQUE: CT abdomen and pelvis acquired with 95 cc Isovue 370 IV contrast. COMPARISON: CT abdomen and pelvis 07/06/2022. FINDINGS: Lower chest: Please refer to separate concurrent CTA chest PE. Liver: Unremarkable. Normal in size and attenuation. No suspicious masses. Gallbladder and bile ducts: Unremarkable. No stones or inflammation. No biliary ductal dilatation. Spleen: Unremarkable. Normal in size. No masses. Adrenal glands: Unremarkable. No nodules. Pancreas: Unremarkable. No mass or inflammation. Kidneys: 11 x 7 mm calculus at the left ureterovesical junction. Moderate left hydroureteronephrosis. Delayed left nephrogram. Left upper pole cyst. Subcentimeter hypodense foci are too small to accurately characterize. GI tract: Colonic diverticulosis without evidence of diverticulitis. No evidence of obstruction. Normal appendix. Lymph nodes: No lymphadenopathy. Vasculature: Unremarkable. Omentum/Peritoneum/Abdominal Wall: Unremarkable. No free air or significant free fluid. Pelvis: Prostatomegaly. Bones: Degenerative changes. IMPRESSION: 11 x 7 mm obstructive left ureterovesical junction calculus with moderate left hydroureteronephrosis. Please note that all CT scans at this facility use dose modulation, iterative reconstruction, and/or weight-based dosing when appropriate to reduce radiation dose to as low as reasonably achievable. Dictated by Evan Doll MD @ 05/17/2024 2:22:18 AM (Electronically Signed)Ordering Physician: Jitendra Jones M.D. Date of Service: 05/17/24 Procedure(s): XR chest 2V Accession Number(s): [id number] cc: Dian You M.D.; Jitendra Jones M.D.~ For Patients: As a result of the Cures Act, medical imaging exams and procedure reports are released immediately into your electronic medical record. You may view this report before your referring provider. If you have questions, please contact your health care provider. INDICATION: Chest pain. TECHNIQUE: Chest 2 view. COMPARISON: Chest radiograph 04/16/2023. FINDINGS: Cardiovascular: Heart size and vasculature are normal in caliber and appearance. Lungs and pleural spaces: There is a subtle airspace opacity in the left lung base. No sign of pleural effusion. No pneumothorax identified. Bones and soft tissues: Degenerative changes of the spine. IMPRESSION: Subtle airspace opacity in the left lung base may represent atelectasis or developing infiltrate. Dictated by Ernestina Sanchez MD @ 05/17/2024 1:09:35 AM (Electronically Signed) ECG Data Attestation: I personally reviewed and interpreted this ECG as follows: ECG interpretation date: 05/17/24 Interpretation: Multiple EKGs were done on this patient, rhythm continues to be sinus, right bundle branch block configuration, with inverted T-waves across the precordium inferiorly, which may be than normal variant for this gentleman Assessment: Abnormal EKG with right bundle-branch block with inverted T-waves which may be normal. No acute ST wave changes, no progression Discharge Plan Discharge Clinical Impression: Renal colic on left side, Elevated lipase, Right bundle branch block (RBBB), Vomiting Patient Disposition: Home w/ Parent or Adult Condition: Improved Instructions: Renal Colic (ED), Acute Nausea and Vomiting (DC), Acute Abdominal Pain (DC) Additional Instructions: Home, rest, pain medications as needed. Strain your urine, lots of fluids, return here if increasing abdominal pain, inability to pass your urine. Fevers chills. No evidence of a heart attack on your blood test, you do have the right bundle-branch block. I would suggest use staying on your aspirin 81 mg a day and follow-up with your primary care physician for consideration of further testing such as a stress test. We do a special type a test called the Lexiscan which is probably the 1 you should do if you have had problems with a regular stress echo in the past. Return back here if increasing pain chest pain shortness of breath, that occurs at rest or with exertion. I have ordered an outpatient stress test for you. I still would like you to follow-up with your primary care physician in the next 2-3 days, we will attempt to make an appointment for you. Take the medications as needed for your renal colic, Activity Level: Light activity Discharge Diet: Regular Prescriptions: New hydrocodone-acetaminophen 5-300 mg tablet 1 tab PO Q6H Qty: 14 0RF No Action aspirin 81 mg tablet,delayed release (DR/EC) 81 mg PO QDAY Centrum Silver Men 300-600-300 mcg tablet 1 tab PO QDAY omega-3 acid ethyl esters 1 gram capsule 1 cap PO QDAY atorvastatin 80 mg tablet 80 mg PO .Bedtime Qty: 90 3RF Follow Up/Referrals: Dian You MD [Primary Care Provider] - Stand Alone [facility] Inst[facility] Procedures Ultrasound Cardiac exam #1: Anatomical areas examined: parasternal long, parasternal short and apical 4 chamber Indications: chest pain Exam type: limited transthoracic echocardiogram Impression: negative exam
[2024-05-17 02:46] LABS: Appearance Urine Clear (Clear); Bilirubin Urine Negative (Negative); Blood Urine Negative (Negative); Color Urine Yellow (Yellow); Glucose Urine Negative (Negative); Ketones Urine 1+ (Negative); Leukocyte Esterase Urine Negative (Negative); Nitrite Urine Negative (Negative); Protein Urine Negative (Negative); Specific Gravity Urine 1.015 (1.000-1.030); pH Urine 8.5 (5.0-8.5)
[2024-05-17 02:52] LABS: RBC Urine 0-2 (0-2)
[2024-05-17 02:53] LABS: Bacteria Urine Few; Squamous Epithelial Cell Urine Few (None-Few)
[2024-05-17 02:57] LABS: Troponin, Point-of-Care* 0.02 ng/ml (0.01-0.04)
[2024-05-17] MEDS: ACETAMINOPHEN 500 MG TABLET 1000 MG PO (03:06)
[2024-05-17] MEDS: KETOROLAC 15 MG/ML inj IVP (03:06)
[2024-05-17 06:15] LABS: Troponin, Point-of-Care* 0.01 ng/ml (0.01-0.04)
--- NOTE | 2024-05-17 06:30 | CRLHL7_ITS ---
For Patients: As a result of the Century Cures Act, medical imaging exams and procedure reports are released immediately into your electronic medical record. You may view this report before your referring provider. If you have questions, please contact your health care provider. INDICATION: Epigastric abdominal pain with elevated lipase. TECHNIQUE: Ultrasound abdomen limited. Sonographic images of the right upper quadrant were obtained using oshea-scale and color Doppler images. COMPARISON: None FINDINGS: Liver: Minimally inhomogeneous echotexture without focal lesion. Gallbladder: Faint sludge, no cholelithiasis. Normal wall thickness. No pericholecystic fluid. Common bile duct: 5 mm. Pancreas: Mostly obscured by bowel gas without gross abnormality. Right kidney: Normal in size. Normal echotexture and cortex. No masses, stones, or hydronephrosis. Vasculature: Inferior vena cava is poorly seen. Proximal aorta obscured by bowel gas. Mid to distal aorta is normal in caliber. IMPRESSION: 1. Somewhat limited examination with midline structures obscured by bowel gas. Specifically, the pancreas is not well seen although no gross abnormalities are identified. 2. Minimal gallbladder sludge, otherwise unremarkable sonographic appearance of the gallbladder and biliary tree. Dictated by Jorden Price MD @ 05/17/2024 7:32:16 AM (Electronically Signed)
--- NOTE | 2024-05-18 13:35 | ED.NURSE ---
calling that the patient need pain medication and wants something sooner than the [address] 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
== END 2024-05-17 07:59 | disposition home or self-care (01) ==
PROVIDERS: Emergency Provider Family Medicine; PCP Family Medicine
DX: N23 Unspecified renal colic (principal); I45.10 Unspecified right bundle-branch block; R74.8 Abnormal levels of other serum enzymes
CPT/HCPCS: 36415; 71046; 71275; 74177; 76705; 80048; 80076; 81001; 82077; 83690; 83880; 84484; 85025; 85379; 85610; 85730; 87086; 87186; 93005; 96374; 96375; 96376; 99285; A9270; J1885; J2270; J7030; Q9967

== ENCOUNTER 2024-05-25 07:39 | Outpatient (CLI) | payer MEDICARE, BC, SELFPAY ==
[2024-05-25] MEDS: REGADENOSON 0.4 MG/5 ML SYRINGE IVP (10:25)
[2024-05-25 10:35] VITALS: BP 110/68; PULSE 79; RESP 16
--- NOTE | 2024-05-25 11:40 | W.PM.STED ---
Stress Test Note Date Date Seen: 05/25/24 Date of test: 05/25/24 Providers Referring provider: Jitendra Jones Primary care provider: Dian You Stress test physician: Jitendra Jones Stress Test Note Stress test ordered: Lexiscan Indication for test: Chest pain Stress test medicine: Lexiscan Results discussion: Patient is a very pleasant gentleman who I saw in the emergency room for chest pain, we are doing a Lexiscan now, as is inability to walk, after discussion the risks benefits side effects, he would like to proceed, pretest EKG. Shows normal sinus rhythm, with occasional PVCs, right bundle branch configuration is noted, and unchanged from previous. A occasional PACs are also noted. Standard Lexiscan protocol is done, over a time course of 5 minutes, maximum heart rate was 101, maximum blood pressure is 126 on 80, the patient was entirely asymptomatic during this test. No changes are noted on the monitor other than his baseline rhythm. Impression: Negative electrographic portion of Lexiscan, subjectively negative Follow up suggested: Await imaging results, which will be read by Cardiology and nuclear Medicine. Clinical correlation with these will be needed, patient recovered normally there were no complications and left this testing facility in good condition.
== END 2024-05-25 07:40 | disposition home or self-care (01) ==
PROVIDERS: PCP Family Medicine; Visit Provider Family Medicine
DX: R07.9 Chest pain, unspecified (principal)
CPT/HCPCS: 78452; 93016; 93017; A9500; J2785